=== PATIENT | female | born 1960 | race Caucasian/White ===

== ENCOUNTER 2021-02-13 09:46 | Emergency (ER) | payer OTHER ==
--- NOTE | 2021-02-13 10:08 | ERPHSYRPT ---
- History of Present Illness Time Seen by Provider: 02/13/21 10:03 Source: patient Exam Limitations: no limitations Physician History: Patient is a 60-year-old female who had surgery by airport location manager in [place] on 20 January. She saw her airport location manager on Monday and he was to remove her sutures but he was afraid that if he took them out it would "open up. She had severe pain in the left great toe and second toe yesterday and last night this morning after some the swelling had gone down she did massage the toe area and was able to express a fairly large amount of serosanguineous fluid. There are still nylon sutures in 2 incisions on the great toe and the second toe. Her pain has been treated by Lortab tens and Lortab 7.5. Surgery was to treat hammertoe and bone spurs. Method of Injury: other (Is postop almost 3 weeks for removal of bone spurs her toe etc.) Occurred: days ago (Days ago) Quality: burning, sharpness, throbbing Severity of Pain-Max: severe Severity of Pain-Current: severe Lower Extremities Pain: 1st toe: left (Area around the great toe and the second toe show much edema retained sutures and with the patient expressing pressure on the great toe a fair amount of serosanguineous fluid drained.), 2nd toe: left Modifying Factors: Improves With: movement Allergies/Adverse Reactions: promethazine [From Phenergan] Allergy (Verified 02/13/21 10:10) Sulfa (Sulfonamide Antibiotics) Allergy (Verified 02/13/21 10:10) Home Medications: Aspirin [Aspirin EC] 325 mg PO 3XW 02/13/21 [History] Duloxetine HCl [Cymbalta] 120 mg PO DAILY 02/13/21 [History] Ezetimibe 10 mg [Zetia 10 MG] 10 mg PO DAILY 02/13/21 [History] Levothyroxine Sodium 75 Mcg [Synthroid 75 Mcg] 75 mcg PO DAILY 02/13/21 [History] Lisinopril 10 mg [Zestril 10 MG] 10 mg PO DAILY 02/13/21 [History] Naproxen Sodium 220 mg [Aleve 220 MG] 440 mg PO BID 02/13/21 [History] Pramipexole Di-HCl 0.5 mg [Mirapex 0.5 MG Tablet] 0.5 mg PO DAILY 02/13/21 [History] - Review of Systems Constitutional: No Fever, No Chills Eyes: No Symptoms Ears, Nose, & Throat: No Symptoms Respiratory: No Cough, No Dyspnea Cardiac: No Chest Pain, No Edema, No Syncope Abdominal/Gastrointestinal: No Abdominal Pain, No Nausea, No Vomiting, No Diarrhea Genitourinary Symptoms: No Dysuria Musculoskeletal: No Back Pain, No Neck Pain Skin: No Rash Neurological: No Dizziness, No Focal Weakness, No Sensory Changes Psychological: No Symptoms Endocrine: No Symptoms All Other Systems: Reviewed and Negative - Nursing Vital Signs Nursing Vital Signs: Initial Vital Signs Temperature 96.8 F 02/13/21 09:56 Pulse Rate 56 L 02/13/21 09:56 Blood Pressure 157/100 02/13/21 09:56 O2 Sat by Pulse Oximetry 100 02/13/21 09:56 Pain Scale Pain Intensity 4 - Physical Exam General Appearance: mild distress Eyes, Ears, Nose, Throat Exam: normal ENT inspection Neck Exam: normal inspection, non-tender, supple, full range of motion Cardiovascular/Respiratory Exam: no respiratory distress, No rib tenderness Foot Exam: left foot: bone tenderness, infection, limited range of motion, pain, soft tissue tenderness, swelling - Course Nursing assessment & vital signs reviewed: Yes - Radiology Exams Foot X-ray Interpretation: Interpreted by me (There are postoperative changes including what appears to be an operative fracture of the proximal phalanx of the left great toe with her some mild pins and there are some margarita) Ordered Tests: Active Orders 24 hr Category Date Time Status FOOT (MINIMUM 3 VIEWS) Stat Exams 02/13/21 09:58 Taken Medication Summary Discontinued Medications Generic Name Dose Route Start Last Admin Trade Name Freq PRN Reason Stop Dose Admin Ceftriaxone Sodium 1,000 mg 02/13/21 10:19 02/13/21 11:11 Rocephin 1000 Mg Inj IM 02/13/21 10:20 1,000 mg STAT ONE Administration Ceftriaxone Sodium Confirm 02/13/21 11:10 Rocephin 1000 Mg Inj Administered 02/13/21 11:11 Dose 1,000 mg .ROUTE .STK-MED ONE - Progress Progress: unchanged Discussed with : Other (Dr Nogueira) Will see patient in: office - Departure Departure Disposition: Home Clinical Impression: Infected incision Condition: Stable Critical Care Time: No Instructions: Wound Care (DC) Prescriptions: Cephalexin Mh 500 mg [Keflex 500 mg] 500 mg PO TID #21 capsule
[2021-02-13 10:09] VITALS: O2SAT 100
[2021-02-13] MEDS ORDERED: Rocephin 1000 MG INJ IM ONE (10:19)
[2021-02-13] MEDS ORDERED: Rocephin 1000 MG INJ ONE (11:10)
[2021-02-13 11:42] VITALS: BP 158/100; PULSE 59
--- NOTE | 2021-02-13 21:36 | XRAY ---
Indication: Postoperative infection. Comparison: None 3 nonweightbearing views left foot demonstrates osteotomy 1st/2nd/3rd metatarsal heads with intact screws, osteotomy shaft 1st proximal phalanx with medial orthopedic tack, partial resection heads 2nd/3rd proximal phalanges, nondisplaced healing proximal 2nd-4th metatarsal shaft fractures, and small plantar heel spur. No other bony, articular, or soft tissue abnormalities.
== END 2021-02-13 11:46 | disposition home or self-care (01) ==
LOC: ED 09:46
DX: T81.41XA Infection following a procedure, superficial incisional surgical site, initial encounter (principal)
CPT/HCPCS: 73630; 96372; 99284; J0696

== ENCOUNTER 2022-06-10 22:49 | Emergency (ER) | payer OTHER ==
[2022-06-10] MEDS ORDERED: Sodium Chloride 0.9% 1000 ML 1,000 ML IV STA (23:10)
[2022-06-10] MEDS ORDERED: Hydromorphone 1 mg/ml Injection IV ONE (23:10)
[2022-06-10] MEDS ORDERED: Zofran 4 MG/2 ML VIAL IV ONE (23:10)
[2022-06-10] MEDS ORDERED: Zofran 4 MG/2 ML VIAL ONE (23:15)
[2022-06-10] MEDS ORDERED: TORAdol 30 mg Injection ONE (23:15)
[2022-06-10] MEDS ORDERED: Sodium Chloride 0.9% 1000 ML 1,000 ML ONE (23:16)
[2022-06-10] MEDS ORDERED: Hydromorphone 1 mg/ml Injection ONE (23:16)
[2022-06-10] MEDS: TORAdol 30 mg Injection IV ONE (23:17)
[2022-06-10 23:19] LABS: Absolute Neutrophil Ct (ANC) 3.11 x10^3/uL (1.4-6.9); Basophil (Absolute #) 0.07 x10^3/uL (0-0.4); Eosinophil % 3.5 % (0.00-5.0); Eosinophil (Absolute #) 0.23 x10^3/uL (0-0.5); Hematocrit 38.7 % (35-47); Hemoglobin 12.2 g/dL (12.0-16.0); Lymphocyte (Absolute #) 2.59 x10^3/uL (1.0-4.6); Lymphocytes % 39.1 % (24.0-44.0); Mean Corpuscular Hemoglobin 28.4 pg (26-32); Mean Corpuscular Hgb Concent. 31.5 g/dL (32-36); Mean Platelet Volume 10.7 fL (7.5-11.0); Monocyte (Absolute #) 0.62 x10^3/uL (0.0-1.3); Monocytes % 9.4 % (0.0-12.0); Neutrophil % 46.7 % (36.0-66.0); Platelet Count 319 x10^3/uL (150-450); Red Cell Distribution Width 13.4 % (11.5-14.0); White Blood Count 6.6 x10^3/uL (4.0-10.5)
--- NOTE | 2022-06-10 23:26 | ERPHSYRPT ---
- History of Present Illness Time Seen by Provider: 06/10/22 23:05 Historian: patient Exam Limitations: no limitations Patient Subjective Stated Complaint: pt states she has been having pain for an hour, it came on suddenly and she states her back on the right side hurts, and flank pain, rates pain at 10/10 Triage Nursing Assessment: pt is alert and orieted, walked to [facility] from er waiting, holding right side of back, states she has pain 10/10 Physician History: This a 61-year-old white female who has a history of ureteral calculi in the past and presents with right side flank pain of sudden onset. The pain has wo rsened. Patient presents writhing around in pain. Patient has a history of hypertension and hypothyroidism. Timing/Duration: today Activities at Onset: none Quality: stabbing Abdominal Pain Onset Location: flank (Right) Severity of Pain-Max: moderate Severity of Pain-Current: moderate Modifying Factors: Improves With: nothing Associated Symptoms: denies symptoms, nausea, No fever/chills Previous symptoms: same symptoms as today, no recent treatment Allergies/Adverse Reactions: promethazine [From Phenergan] Allergy (Verified 02/13/21 10:10) Sulfa (Sulfonamide Antibiotics) Allergy (Verified 02/13/21 10:10) Home Medications: Aspirin [Aspirin EC] 325 mg PO 3XW 02/13/21 [History] Duloxetine HCl [Cymbalta] 120 mg PO DAILY 02/13/21 [History] Ezetimibe 10 mg [Zetia 10 MG] 10 mg PO DAILY 02/13/21 [History] Levothyroxine Sodium 75 Mcg [Synthroid 75 Mcg] 75 mcg PO DAILY 02/13/21 [History] Lisinopril 10 mg [Zestril 10 MG] 10 mg PO DAILY 02/13/21 [History] Naproxen Sodium 220 mg [Aleve 220 MG] 440 mg PO BID 02/13/21 [History] Pramipexole Di-HCl 0.5 mg [Mirapex 0.5 MG Tablet] 0.5 mg PO DAILY 02/13/21 [History] Travel Risk - International Travel Have you traveled outside of the country in past 3 weeks: No - Coronavirus Screening Are you exhibiting any of the following symptoms?: No Close contact with a COVID-19 positive Pt in past 14-21 Days: No - Vaccine Status Have you recieved a Covid-19 vaccination: Yes Occupational Health Nurse Manager: [employer] - Vaccination Dates Date of 2cond Vaccination (if applicable): unknown - Review of Systems Constitutional: No Symptoms Eyes: No Symptoms Ears, Nose, & Throat: No Symptoms Respiratory: No Symptoms Cardiac: No Symptoms Abdominal/Gastrointestinal: Nausea Genitourinary Symptoms: Flank Pain (Right side) Musculoskeletal: No Symptoms Skin: No Symptoms Neurological: No Symptoms Psychological: No Symptoms Endocrine: No Symptoms Hematologic/Lymphatic: No Symptoms Immunological/Allergic: No Symptoms All Other Systems: Reviewed and Negative - Past Medical History Pertinent Past Medical History: Yes Cardiac History: High Cholesterol, Hypertension Endocrine Medical History: Hypothyroidism Musculoskeletal History: Osteoporosis GI Medical History: GERD Other Medical History: restless leg, fibromyalgia - Past Surgical History Past Surgical History: Yes Gastrointestinal: Appendectomy Musculoskeletal: Orthopedic Surgery Female Surgical History: Hysterectomy Other Surgical History: left foot hammer toes/bunions/spurs, left thumb ligament, bladder suspension, kamar carpal tunnel, left partial knee, left tennis elbow release, lasik eye surgery, right rotator cuff - Social History Smoking Status: Never smoker Exposure to second hand smoke: No Drug Use: none Patient Lives Alone: No - Nursing Vital Signs Nursing Vital Signs: Initial Vital Signs Temperature 96.8 F 06/10/22 22:55 Pulse Rate 110 H 06/10/22 22:55 Respiratory Rate 18 06/10/22 22:55 Blood Pressure 198/102 06/10/22 22:55 O2 Sat by Pulse Oximetry 98 06/10/22 22:55 Pain Scale Pain Intensity 6 - Physical Exam General Appearance: moderate distress, alert, anxiety Eye Exam: PERRL/EOMI, eyes nml inspection Ears, Nose, Throat Exam: normal ENT inspection, moist mucous membranes Neck Exam: normal inspection, non-tender, supple, full range of motion Respiratory Exam: normal breath sounds, lungs clear, prolonged expirations, No chest tenderness, No respiratory distress Cardiovascular Exam: tachycardia Gastrointestinal/Abdomen Exam: soft, normal bowel sounds, No tenderness, No guarding Pelvic Exam: not done Rectal Exam: not done Back Exam: normal inspection, normal range of motion, CVA tenderness (Right), No vertebral tenderness Extremity Exam: normal inspection, normal range of motion, pelvis stable Neurologic Exam: alert, oriented x 3, cooperative, divider operator II-XII nml as tested, normal mood/affect, nml cerebellar function, nml station & gait, sensation nml Skin Exam: normal color, warm, dry Lymphatic Exam: No adenopathy SpO2 Interpretation: normal SpO2: 98 O2 Delivery: Room Air - Course Nursing assessment & vital signs reviewed: Yes Ordered Tests: Active Orders 24 hr Category Date Time Status IV Insertion STAT Care 06/10/22 23:10 Active ABDOMEN AND PELVIS W/0 CONTRAS [CT] Stat Exams 06/10/22 23:10 Taken AMYLASE Stat Lab 06/10/22 23:16 Completed CBC W DIFF Stat Lab 06/10/22 23:16 Completed CMP Stat Lab 06/10/22 23:16 Completed CULTURE,URINE Stat Lab 06/10/22 23:19 Received LIPASE Stat Lab 06/10/22 23:16 Completed UA W/RFX CULTURE Stat Lab 06/10/22 23:19 Completed Medication Summary Generic Name Dose Route Start Last Admin Trade Name Freq PRN Reason Stop Dose Admin Sodium Chloride 500 mls @ 500 mls/hr 06/11/22 00:47 06/11/22 00:49 Sodium Chloride 0.9% 500 Ml IV 06/11/22 01:46 500 mls/hr .Q1H ONE Administration Discontinued Medications Generic Name Dose Route Start Last Admin Trade Name Freq PRN Reason Stop Dose Admin Hydromorphone HCl 1 mg 06/10/22 23:10 06/10/22 23:17 Hydromorphone 1 Mg/1ml Inj 1 Mg/Ml Syringe IV 06/10/22 23:11 1 mg STAT ONE Administration Hydromorphone HCl Confirm 06/10/22 23:16 Hydromorphone 1 Mg/1ml Inj 1 Mg/Ml Syringe Administered 06/10/22 23:17 Dose 1 mg .ROUTE .STK-MED ONE Hydromorphone HCl 1 mg 06/11/22 00:20 06/11/22 00:25 Hydromorphone 1 Mg/1ml Inj 1 Mg/Ml Syringe IV 06/11/22 00:21 1 mg STAT ONE Administration Hydromorphone HCl Confirm 06/11/22 00:24 Hydromorphone 1 Mg/1ml Inj 1 Mg/Ml Syringe Administered 06/11/22 00:25 Dose 1 mg .ROUTE .STK-MED ONE Sodium Chloride 1,000 mls @ 999 mls/hr 06/10/22 23:10 06/10/22 23:17 Sodium Chloride 0.9% 1000 Ml IV 06/11/22 00:10 999 mls/hr .Q1H1M STA Administration Sodium Chloride Confirm 06/10/22 23:16 Sodium Chloride 0.9% 1000 Ml Administered 06/10/22 23:17 Dose 1,000 mls @ ud .ROUTE .STK-MED ONE Sodium Chloride Confirm 06/11/22 00:49 Sodium Chloride 0.9% 500 Ml Administered 06/11/22 00:50 Dose 500 mls @ ud IV .STK-MED ONE Ketorolac Tromethamine 30 mg 06/10/22 23:10 06/11/22 00:03 Ketorolac Tromethamine 30 Mg/Ml Inj IV 06/10/22 23:11 Not Given STAT ONE Ketorolac Tromethamine Confirm 06/10/22 23:15 Ketorolac Tromethamine 30 Mg/Ml Inj Administered 06/10/22 23:16 Dose 30 mg .ROUTE .STK-MED ONE Ondansetron HCl 4 mg 06/10/22 23:10 06/10/22 23:17 Ondansetron Hcl 4 Mg/2 Ml Vial IV 06/10/22 23:11 4 mg STAT ONE Administration Ondansetron HCl Confirm 06/10/22 23:15 Ondansetron Hcl 4 Mg/2 Ml Vial Administered 06/10/22 23:16 Dose 4 mg .ROUTE .STK-MED ONE Lab/Rad Data: Laboratory Result Diagrams 06/10/22 23:16 06/10/22 23:16 Laboratory Results 06/10/22 06/10/22 06/10/22 Range/Units 23:19 23:16 23:16 WBC 6.6 (4.0-10.5) x10^3/uL RBC 4.30 (4.1-5.4) x10^6/uL Hgb 12.2 (12.0-16.0) g/dL Hct 38.7 (35-47) % MCV 90.0 (78-100) fL MCH 28.4 (26-32) pg MCHC 31.5 L (32-36) g/dL RDW 13.4 (11.5-14.0) % Plt Count 319 (150-450) x10^3/uL MPV 10.7 (7.5-11.0) fL Gran % 46.7 (36.0-66.0) % Immature Gran % (Auto) 0.2 (0.00-0.4) % Nucleat RBC Rel Count 0.0 (0.00-0.1) % Eos # (Auto) 0.23 (0-0.5) x10^3/uL Immature Gran # (Auto) 0.01 (0.00-0.03) x10^3u/L Absolute Lymphs (auto) 2.59 (1.0-4.6) x10^3/uL Absolute Monos (auto) 0.62 (0.0-1.3) x10^3/uL Absolute Nucleated RBC 0.00 (0.00-0.01) x10^3u/L Lymphocytes % 39.1 (24.0-44.0) % Monocytes % 9.4 (0.0-12.0) % Eosinophils % 3.5 (0.00-5.0) % Basophils % 1.1 (0.0-0.4) % Absolute Granulocytes 3.11 (1.4-6.9) x10^3/uL Basophils # 0.07 (0-0.4) x10^3/uL Sodium 137 (137-145) mmol/L Potassium 3.9 (3.5-5.1) mmol/L Chloride 105 (98-107) mmol/L Carbon Dioxide 24 (22-30) mmol/L Anion Gap 12.3 (5-15) MEQ/L BUN 16 (7-17) mg/dL Creatinine 0.77 (0.52-1.04) mg/dL Estimated GFR > 60.0 ML/MIN Glucose 115 H (74-106) mg/dL Calcium 9.4 (8.4-10.2) mg/dL Total Bilirubin 0.50 (0.2-1.3) mg/dL AST 22 (14-36) U/L ALT 22 (0-35) U/L Alkaline Phosphatase 72 (38-126) U/L Serum Total Protein 7.4 (6.3-8.2) g/dL Albumin 4.5 (3.5-5.0) g/dL Amylase 88 (30-110) U/L Lipase 203 (23-300) U/L Urinalys Dipstick Clnc MAIN LAB Urine Color YELLOW (YELLOW) Urine Appearance CLEAR (CLEAR) Urine pH 5.5 (5-6) Ur Specific [place] <=1.005 (1.005-1.025) POC Urine Protein Conf NEGATIVE (Negative) Urine Ketones NEGATIVE (NEGATIVE) Urine Nitrite NEGATIVE (NEGATIVE) Urine Bilirubin NEGATIVE (NEGATIVE) Urine Urobilinogen 0.2 (0-1) mg/dL Urine Leukocytes TRACE (NEGATIVE) Urine WBC (Auto) 0-2 (0-5) /HPF Urine RBC (Auto) 0-2 (0-2) /HPF U Epithel Cells (Auto) NONE (FEW) /HPF Urine Bacteria (Auto) NONE SEEN (NEGATIVE) /HPF Urine RBC LARGE (0-5) David/ul Urine Mucus (Auto) SLIGHT (NEGATIVE) /HPF Ur Culture Indicated? YES Urine Glucose NEGATIVE (NEGATIVE) mg/dL - Progress Progress: improved, pain not gone completely Progress Note: 06/11/22 01:07 CAT scan of the abdomen pelvis without contrast shows a proximal right ureteral stone measuring approximately 7 mm with obstructive uropathy present. Medical decision making: This patient has refused up to this point Toradol injection. Patient was concerned that she might have to have a lithotripsy which she has had in the past. I told her that is a possibility. She [place] camp[place] and is from [place]. She prefers being evaluated at [facility] if she is going to need urologic intervention. She has now agreed to receive the Toradol injection and Flomax medication. We will send her home with a prescription for Flomax and Alberta pain medication. She is aware that she will proceed to [facility] emergency rooms if her symptoms worsen. Counseled pt/family regarding: lab results, diagnosis, need for follow-up, rad results - Departure Departure Disposition: Home Clinical Impression: Right ureteral calculus Condition: Stable Critical Care Time: No Referrals: HEIDY CHRISTENSEN JR [Primary Care Provider] - Follow up/PCP as directed Additional Instructions: Drink plenty of fluids. Use ibuprofen 600 mg orally 3 times a day with food. Take your medication as prescribed. If your symptoms recur, proceed to [facility] or [facility] in [facility] as you desired to. They have urologic services on staff this weekend. Prescriptions: Hydrocodone/APAP 5/325 [Al[place] 5/325 mg] 1 each PO Q8H PRN PRN #6 tablet MDD 3 PRN Reason: Pain Tamsulosin HCl 0.4 mg [Flomax 0.4 MG] 0.4 mg PO DAILY #7 cap
[2022-06-10 23:38] LABS: ALBUMIN 4.5 g/dL (3.5-5.0); ALKALINE PHOSPHATASE 72 U/L (38-126); AMYLASE 88 U/L (30-110); ANION GAP 12.3 MEQ/L (5-15); BLOOD UREA NITROGEN 16 mg/dL (7-17); CHLORIDE 105 mmol/L (98-107); Calcium 9.4 mg/dL (8.4-10.2); Carbon Dioxide 24 mmol/L (22-30); Creatinine 1 0.77 mg/dL (0.52-1.04); EST GLOMERULAR FILTRATION RATE > 60.0 ML/MIN; Glucose 115 mg/dL (74-106); LIPASE 203 U/L (23-300); Potassium 3.9 mmol/L (3.5-5.1); SGOT/AST 22 U/L (14-36); SGPT/ALT 22 U/L (0-35); SODIUM 137 mmol/L (137-145); Total Protein 7.4 g/dL (6.3-8.2)
[2022-06-10 23:41] LABS: Mucus SLIGHT /HPF (NEGATIVE); RBC 0-2 /HPF (0-2); WBC 0-2 /HPF (0-5)
[2022-06-10 23:42] LABS: Appearance CLEAR (CLEAR); Bilirubin NEGATIVE (NEGATIVE); Dipstick done @ ? MAIN LAB; Glucose NEGATIVE (NEGATIVE); Ketones NEGATIVE (NEGATIVE); Nitrite NEGATIVE (NEGATIVE); Ph 5.5 (5-6); Protein,Urine Dip NEGATIVE (Negative); RBC LARGE Ery/ul (0-5); Specific Gravity <=1.005 (1.005-1.025); Urobilinogen 0.2 mg/dL (0-1)
[2022-06-10 23:43] LABS: Bacteria NONE SEEN /HPF (NEGATIVE); Urine Cultured Indicated? YES
[2022-06-11] MEDS: TORAdol 30 mg Injection IV ONE (00:03)
[2022-06-11] MEDS ORDERED: Hydromorphone 1 mg/ml Injection IV ONE (00:20)
[2022-06-11] MEDS ORDERED: Hydromorphone 1 mg/ml Injection ONE (00:24)
[2022-06-11] MEDS ORDERED: Sodium Chloride 0.9% 500 ML 500 ML IV ONE ×2 (00:47→00:49)
[2022-06-11] MEDS ORDERED: TORAdol 30 mg Injection IV ONE (01:11)
[2022-06-11] MEDS ORDERED: Flomax 0.4 MG PO ONE (01:12)
[2022-06-11] MEDS ORDERED: NORCO 5/325 MG PO ONE (01:12)
[2022-06-11] MEDS ORDERED: TORAdol 30 mg Injection ONE (01:16)
[2022-06-11] MEDS ORDERED: Flomax 0.4 MG ONE (01:16)
[2022-06-11] MEDS ORDERED: NORCO 5/325 MG ONE (01:16)
[2022-06-11 02:36] VITALS: BP 154/81; PULSE 81; O2SAT 99
--- NOTE | 2022-06-11 07:54 | XRAY ---
Indication: Right flank pain. Nausea and vomiting. Multiple contiguous axial images obtained through the abdomen and pelvis without contrast using renal stone protocol. Comparison: None Lung bases images bibasilar subsegmental atelectasis/scarring. No infiltrate or effusion. Heart not enlarged. 7-8mm proximal right ureter calculus, approximately L3-L4 interspace level. Mild right hydronephrosis consistent with obstructive uropathy. No free fluid/air. Left kidney demonstrates additional 3-4 mm nonobstructing calculus. Incidental bilateral renal parapelvic cysts. Stomach is distended with food/fluid. Noncontrasted stomach and bowel loops appear nonobstructed. Scattered sigmoid diverticulosis without diverticulitis. No free fluid/air. Remaining liver, gallbladder, pancreas, spleen, adrenal glands, kidneys, ureters, and bladder are unremarkable for noncontrast exam. Minimal scattered aortoiliac calcifications without AAA. Osseous structures intact with minimal degenerative changes throughout the spine, minimal double curvature thoracolumbar scoliosis, and multiple old right lower rib fractures. Impression: 1. 7-8mm proximal right ureter calculus producing obstructive uropathy as detailed. Additional nonobstructing left renal micro-calculus and bilateral renal parapelvic cysts. 2. Chronic findings including sigmoid diverticulosis, arteriosclerotic disease, and chronic bony findings. Comment: Preliminary interpretation made by [facility]. No critical discrepancy.
== END 2022-06-11 02:25 | disposition home or self-care (01) ==
LOC: ED 22:49
DX: N13.2 Hydronephrosis with renal and ureteral calculous obstruction (principal); R10.9 Unspecified abdominal pain; I10 Essential (primary) hypertension; E78.5 Hyperlipidemia, unspecified; Z79.891 Long term (current) use of opiate analgesic; Z79.899 Other long term (current) drug therapy
CPT/HCPCS: 36000; 36415; 74176; 80053; 81015; 82150; 83690; 85025; 87086; 96360; 96374; 96375; 96376; 99284; J1170; J1885; J2405; A9270-GY